=== PATIENT | female | born 1950 | race Caucasian/White ===

== ENCOUNTER 2020-11-24 15:01 | Inpatient (IN) ==
[2020-11-25] MEDS: Gabapentin 300 MG CAPSULE PO SCH ×2 (17:20→21:44)
[2020-11-25] MEDS ORDERED: Sulfamethoxazole/Trimeth DS 1 EACH TABLET PO SCH (21:00)
[2020-11-25] MEDS: Sennosides/Docusate Sodium TABLET PO SCH (21:43)
[2020-11-25] MEDS: *HR* OxyCODONE Immed Rel 5 MG TABLET PO PRN (21:43)
[2020-11-25] MEDS: Cyanocobalamin (B-12) 1,000 MCG TABLET PO SCH (21:44)
[2020-11-26 04:45] LABS: Basophils % 0.8 %; Eosinophils # 0.4 K/mcL (0.0-0.6); Eosinophils % 7.4 %; Hematocrit 36.3 % (35.3-44.9); Immature Granulocytes % 0.2 % (0-4); Lymphocytes # 1.3 K/mcL (0.6-4.6); Lymphocytes % 26.9 %; Mean Corpuscular HGB Conc 32.5 g/dL (31.6-35.5); Mean Corpuscular Hemoglobin 31.6 pg (28.0-33.3); Mean Corpuscular Volume 97.1 fL (83.0-100.0); Monocytes # 0.5 K/mcL (0.0-1.3); Monocytes % 10.5 %; Neutrophils # 2.6 K/mcL (1.6-8.9); Platelet Count 212 K/mcL (140-400); Red Blood Count 3.74 M/mcL (3.82-4.97); Segmented Neutrophils % 54.2 %; White Blood Count 4.8 K/mcL (4.3-11.1)
[2020-11-26 04:52] LABS: Hemoglobin 11.8 g/dL (11.5-15.4)
[2020-11-26 04:59] LABS: Calcium 8.7 mg/dL (8.6-10.3); Potassium 4.1 mEq/L (3.5-5.1)
[2020-11-26] MEDS: *HR* OxyCODONE Immed Rel 5 MG TABLET PO PRN ×3 (05:15→23:43)
[2020-11-26] MEDS: *HR* Enoxaparin 30 MG/0.3 ML SYRINGE SQ SCH (05:16)
[2020-11-26] MEDS: Aspirin Enteric Coated 81 MG Tablet PO SCH (09:33)
[2020-11-26] MEDS: Multivit/Ca/Min/Fe/FA 1 TAB TABLET PO SCH (09:33)
[2020-11-26] MEDS: Lactobacillus 1 EACH CAP.SPRINK PO SCH (09:33)
[2020-11-26] MEDS: Cholecalciferol (D-3) 1,000 UNIT (25MCG) TABLET PO SCH (09:33)
[2020-11-26] MEDS: Sennosides/Docusate Sodium TABLET PO SCH ×2 (09:33→21:46)
[2020-11-26] MEDS: Gabapentin 300 MG CAPSULE PO SCH ×3 (09:34→21:47)
[2020-11-26] MEDS: Folic Acid 1 MG TABLET PO SCH (09:34)
[2020-11-26] MEDS: Cyanocobalamin (B-12) 1,000 MCG TABLET PO SCH ×2 (09:34→21:47)
[2020-11-26] MEDS: BuPROPion XL (24 HR) 150 MG TABLET PO SCH (09:39)
[2020-11-26] MEDS ORDERED: VOLTAREN 1% TP PRN (11:26)
[2020-11-26] MEDS: Ondansetron ODT 4 MG TAB.RAPDIS SL PRN (12:17)
[2020-11-26] MEDS: Sulfamethoxazole/Trimeth DS 1 EACH TABLET PO SCH (21:49)
[2020-11-27] MEDS: *HR* OxyCODONE Immed Rel 5 MG TABLET PO PRN ×4 (05:18→21:16)
[2020-11-27] MEDS: *HR* Enoxaparin 30 MG/0.3 ML SYRINGE SQ SCH (05:19)
[2020-11-27] MEDS: Cholecalciferol (D-3) 1,000 UNIT (25MCG) TABLET PO SCH (08:39)
[2020-11-27] MEDS: Sennosides/Docusate Sodium TABLET PO SCH ×2 (08:40→21:15)
[2020-11-27] MEDS: Aspirin Enteric Coated 81 MG Tablet PO SCH (08:40)
[2020-11-27] MEDS: Cyanocobalamin (B-12) 1,000 MCG TABLET PO SCH ×2 (08:40→21:16)
[2020-11-27] MEDS: Lactobacillus 1 EACH CAP.SPRINK PO SCH (08:40)
[2020-11-27] MEDS: Multivit/Ca/Min/Fe/FA 1 TAB TABLET PO SCH (08:40)
[2020-11-27] MEDS: Gabapentin 300 MG CAPSULE PO SCH ×3 (08:40→21:14)
[2020-11-27] MEDS: BuPROPion XL (24 HR) 150 MG TABLET PO SCH (08:41)
[2020-11-27] MEDS: Triamcinolone Acet 0.1% CRM 15 GM TUBE TP SCH (08:41)
[2020-11-27] MEDS: Folic Acid 1 MG TABLET PO SCH ×2 (08:42→11:35)
[2020-11-27] MEDS: Ondansetron ODT 4 MG TAB.RAPDIS SL PRN (15:55)
[2020-11-27] MEDS ORDERED: ALENDRONATE SODIUM 70 MG PO SCH (16:15)
[2020-11-27] MEDS: Sulfamethoxazole/Trimeth DS 1 EACH TABLET PO SCH (21:19)
[2020-11-28] MEDS: *HR* Enoxaparin 40 MG/0.4 ML SYRINGE SQ SCH (04:50)
[2020-11-28] MEDS: *HR* OxyCODONE Immed Rel 5 MG TABLET PO PRN ×2 (04:51→20:11)
[2020-11-28] MEDS: Aspirin Enteric Coated 81 MG Tablet PO SCH (07:28)
[2020-11-28] MEDS: Multivit/Ca/Min/Fe/FA 1 TAB TABLET PO SCH (07:28)
[2020-11-28] MEDS: BuPROPion XL (24 HR) 150 MG TABLET PO SCH (07:29)
[2020-11-28] MEDS: Acetaminophen 325 MG TABLET PO PRN ×2 (07:29→15:04)
[2020-11-28] MEDS: Sennosides/Docusate Sodium TABLET PO SCH ×2 (07:29→20:09)
[2020-11-28] MEDS: Gabapentin 300 MG CAPSULE PO SCH ×3 (07:29→20:10)
[2020-11-28] MEDS: Cyanocobalamin (B-12) 1,000 MCG TABLET PO SCH ×2 (07:30→20:09)
[2020-11-28] MEDS: Cholecalciferol (D-3) 1,000 UNIT (25MCG) TABLET PO SCH (07:30)
[2020-11-28] MEDS: Triamcinolone Acet 0.1% CRM 15 GM TUBE TP SCH (07:30)
[2020-11-28] MEDS: Lactobacillus 1 EACH CAP.SPRINK PO SCH (07:30)
[2020-11-28] MEDS: Folic Acid 1 MG TABLET PO SCH (07:30)
[2020-11-28] MEDS: Ondansetron ODT 4 MG TAB.RAPDIS SL PRN (15:04)
[2020-11-28] MEDS: Sulfamethoxazole/Trimeth DS 1 EACH TABLET PO SCH (20:10)
[2020-11-29] MEDS: *HR* OxyCODONE Immed Rel 5 MG TABLET PO PRN ×3 (04:13→23:00)
[2020-11-29] MEDS: *HR* Enoxaparin 40 MG/0.4 ML SYRINGE SQ SCH (04:14)
[2020-11-29 04:47] LABS: Hemoglobin 11.3 g/dL (11.5-15.4); Mean Corpuscular HGB Conc 31.4 g/dL (31.6-35.5); Mean Corpuscular Volume 98.9 fL (83.0-100.0); Mean Platelet Volume 9.9 fL (9.4-12.4); Platelet Count 216 K/mcL (140-400); Red Blood Count 3.64 M/mcL (3.82-4.97); Red Cell Distribution Width 13.9 % (11.5-14.5); White Blood Count 4.3 K/mcL (4.3-11.1)
[2020-11-29 05:04] LABS: Albumin 3.5 g/dL (3.5-5.7); Albumin/Globulin Ratio 1.5 (1.1-2.2); Bilirubin,Total 0.4 mg/dL (0.3-1.0); Globulin 2.4 g/dL (2.4-3.5); Magnesium 1.9 mg/dL (1.6-2.6); Potassium 4.3 mEq/L (3.5-5.1); Total Protein 5.9 g/dL (6.4-8.9)
[2020-11-29 05:47] LABS: Thyroid Stimulating Hormone 8.671 mcIU/mL (0.340-5.600)
[2020-11-29] MEDS: Acetaminophen 325 MG TABLET PO PRN ×2 (07:35→16:14)
[2020-11-29] MEDS: BuPROPion XL (24 HR) 150 MG TABLET PO SCH (07:36)
[2020-11-29] MEDS: Sennosides/Docusate Sodium TABLET PO SCH ×2 (07:36→20:42)
[2020-11-29] MEDS: Aspirin Enteric Coated 81 MG Tablet PO SCH (07:36)
[2020-11-29] MEDS: Cholecalciferol (D-3) 1,000 UNIT (25MCG) TABLET PO SCH (07:36)
[2020-11-29] MEDS: Multivit/Ca/Min/Fe/FA 1 TAB TABLET PO SCH (07:37)
[2020-11-29] MEDS: Gabapentin 300 MG CAPSULE PO SCH ×3 (07:37→20:38)
[2020-11-29] MEDS: Lactobacillus 1 EACH CAP.SPRINK PO SCH (07:37)
[2020-11-29] MEDS: Triamcinolone Acet 0.1% CRM 15 GM TUBE TP SCH (07:38)
[2020-11-29] MEDS: Folic Acid 1 MG TABLET PO SCH (07:38)
[2020-11-29] MEDS: Cyanocobalamin (B-12) 1,000 MCG TABLET PO SCH ×2 (07:38→20:38)
[2020-11-29] MEDS: Ondansetron ODT 4 MG TAB.RAPDIS SL PRN (07:39)
[2020-11-29] MEDS ORDERED: polyethylene glycoL 3350 17 GM POWD.PACK PO PRN (10:21)
[2020-11-29] MEDS: Ondansetron ODT 4 MG TAB.RAPDIS SL SCH (16:14)
[2020-11-29] MEDS: Sulfamethoxazole/Trimeth DS 1 EACH TABLET PO SCH (20:39)
[2020-11-30] MEDS: Acetaminophen 325 MG TABLET PO PRN ×3 (03:38→15:02)
[2020-11-30] MEDS: *HR* Enoxaparin 40 MG/0.4 ML SYRINGE SQ SCH (06:40)
[2020-11-30] MEDS: Folic Acid 1 MG TABLET PO SCH (09:04)
[2020-11-30] MEDS: BuPROPion XL (24 HR) 150 MG TABLET PO SCH (09:04)
[2020-11-30] MEDS: Aspirin Enteric Coated 81 MG Tablet PO SCH (09:04)
[2020-11-30] MEDS: Sennosides/Docusate Sodium TABLET PO SCH ×2 (09:04→21:58)
[2020-11-30] MEDS: Cyanocobalamin (B-12) 1,000 MCG TABLET PO SCH ×2 (09:04→21:58)
[2020-11-30] MEDS: Multivit/Ca/Min/Fe/FA 1 TAB TABLET PO SCH (09:05)
[2020-11-30] MEDS: Cholecalciferol (D-3) 1,000 UNIT (25MCG) TABLET PO SCH (09:05)
[2020-11-30] MEDS: Lactobacillus 1 EACH CAP.SPRINK PO SCH (09:05)
[2020-11-30] MEDS: Gabapentin 300 MG CAPSULE PO SCH ×3 (09:05→21:58)
[2020-11-30] MEDS: Triamcinolone Acet 0.1% CRM 15 GM TUBE TP SCH (09:06)
[2020-11-30] MEDS: Ondansetron ODT 4 MG TAB.RAPDIS SL SCH ×2 (12:04→16:34)
[2020-11-30] MEDS: *HR* OxyCODONE Immed Rel 5 MG TABLET PO PRN (15:02)
[2020-11-30] MEDS: Sulfamethoxazole/Trimeth DS 1 EACH TABLET PO SCH (21:57)
[2020-12-01] MEDS: *HR* Enoxaparin 40 MG/0.4 ML SYRINGE SQ SCH (06:16)
[2020-12-01] MEDS: Ondansetron ODT 4 MG TAB.RAPDIS SL PRN (09:17)
[2020-12-01] MEDS: Aspirin Enteric Coated 81 MG Tablet PO SCH (10:44)
[2020-12-01] MEDS: Sennosides/Docusate Sodium TABLET PO SCH ×2 (10:44→21:12)
[2020-12-01] MEDS: Multivit/Ca/Min/Fe/FA 1 TAB TABLET PO SCH (10:44)
[2020-12-01] MEDS: Cholecalciferol (D-3) 1,000 UNIT (25MCG) TABLET PO SCH (10:44)
[2020-12-01] MEDS: Cyanocobalamin (B-12) 1,000 MCG TABLET PO SCH ×2 (10:44→21:12)
[2020-12-01] MEDS: Lactobacillus 1 EACH CAP.SPRINK PO SCH (10:44)
[2020-12-01] MEDS: Gabapentin 300 MG CAPSULE PO SCH ×3 (10:44→21:12)
[2020-12-01] MEDS: BuPROPion XL (24 HR) 150 MG TABLET PO SCH (10:44)
[2020-12-01] MEDS: Folic Acid 1 MG TABLET PO SCH (10:44)
[2020-12-01] MEDS: Triamcinolone Acet 0.1% CRM 15 GM TUBE TP SCH (10:45)
[2020-12-01] MEDS ORDERED: *HR* Promethazine 25 MG/ML VIAL IM ONE (11:34)
[2020-12-01] MEDS: Ondansetron ODT 4 MG TAB.RAPDIS SL SCH ×2 (11:55→17:26)
[2020-12-01] MEDS ORDERED: Metoclopramide 10 MG/2 ML VIAL IVP ONE (14:24)
[2020-12-01] MEDS ORDERED: 0.9 % Sodium Chloride 1,000 ML IVC ONE (14:25)
[2020-12-01] MEDS ORDERED: Ondansetron 4 MG/2 ML VIAL IVP ONE (14:25)
[2020-12-01] MEDS ORDERED: Ondansetron 4 MG/2 ML VIAL IVP PRN (16:54)
[2020-12-01] MEDS ORDERED: *HR* Promethazine 25 MG/ML VIAL IM PRN (16:54)
[2020-12-01 18:01] LABS: Bilirubin,Urine Negative (Negative); Blood,Urine Negative (Negative); Clarity,Urine Clear (Clear); Color,Urine Yellow (Yellow); Glucose,Urine (UA) Normal (Normal); Ketones,Urine 15 mg/dL (Negative); Leukocyte Esterase,Urine Negative (Negative); Nitrite,Urine Negative (Negative); Protein,Urine Negative (Neg-Trace); Specific Gravity,Urine 1.025 (1.010-1.025); Urobilinogen,Urine Normal (Normal)
[2020-12-01] MEDS ORDERED: 0.9 % Sodium Chloride 1,000 ML IVC SCH (20:00)
[2020-12-01] MEDS: Sulfamethoxazole/Trimeth DS 1 EACH TABLET PO SCH (21:11)
[2020-12-02] MEDS: *HR* Enoxaparin 40 MG/0.4 ML SYRINGE SQ SCH (06:16)
[2020-12-02] MEDS: *HR* OxyCODONE Immed Rel 5 MG TABLET PO PRN ×2 (08:37→15:48)
[2020-12-02] MEDS: Sennosides/Docusate Sodium TABLET PO SCH ×2 (08:38→20:47)
[2020-12-02] MEDS: Cholecalciferol (D-3) 1,000 UNIT (25MCG) TABLET PO SCH (08:38)
[2020-12-02] MEDS: Lactobacillus 1 EACH CAP.SPRINK PO SCH (08:38)
[2020-12-02] MEDS: Folic Acid 1 MG TABLET PO SCH (08:38)
[2020-12-02] MEDS: Aspirin Enteric Coated 81 MG Tablet PO SCH (08:38)
[2020-12-02] MEDS: BuPROPion XL (24 HR) 150 MG TABLET PO SCH (08:39)
[2020-12-02] MEDS: Multivit/Ca/Min/Fe/FA 1 TAB TABLET PO SCH (08:39)
[2020-12-02] MEDS: Gabapentin 300 MG CAPSULE PO SCH ×3 (08:40→20:48)
[2020-12-02] MEDS: Triamcinolone Acet 0.1% CRM 15 GM TUBE TP SCH (08:40)
[2020-12-02] MEDS: Cyanocobalamin (B-12) 1,000 MCG TABLET PO SCH ×2 (08:41→20:47)
[2020-12-02] MEDS: Ondansetron ODT 4 MG TAB.RAPDIS SL SCH ×2 (11:55→15:48)
[2020-12-02] MEDS: Sulfamethoxazole/Trimeth DS 1 EACH TABLET PO SCH (20:47)
[2020-12-03 04:35] LABS: Hematocrit 34.1 % (35.3-44.9); Hemoglobin 10.8 g/dL (11.5-15.4); Mean Corpuscular HGB Conc 31.7 g/dL (31.6-35.5); Mean Corpuscular Hemoglobin 31.4 pg (28.0-33.3); Mean Corpuscular Volume 99.1 fL (83.0-100.0); Mean Platelet Volume 9.8 fL (9.4-12.4); Platelet Count 227 K/mcL (140-400); Red Blood Count 3.44 M/mcL (3.82-4.97); White Blood Count 4.8 K/mcL (4.3-11.1)
[2020-12-03 04:49] LABS: Calcium 8.4 mg/dL (8.6-10.3); Magnesium 1.9 mg/dL (1.6-2.6); Potassium 4.3 mEq/L (3.5-5.1)
[2020-12-03] MEDS: *HR* Enoxaparin 40 MG/0.4 ML SYRINGE SQ SCH (06:26)
[2020-12-03] MEDS: *HR* OxyCODONE Immed Rel 5 MG TABLET PO PRN ×3 (08:24→21:05)
[2020-12-03] MEDS: Gabapentin 300 MG CAPSULE PO SCH ×3 (08:25→20:56)
[2020-12-03] MEDS: Sennosides/Docusate Sodium TABLET PO SCH ×2 (08:25→20:56)
[2020-12-03] MEDS: Cyanocobalamin (B-12) 1,000 MCG TABLET PO SCH ×2 (08:25→20:56)
[2020-12-03] MEDS: Lactobacillus 1 EACH CAP.SPRINK PO SCH (08:25)
[2020-12-03] MEDS: BuPROPion XL (24 HR) 150 MG TABLET PO SCH (08:25)
[2020-12-03] MEDS: Folic Acid 1 MG TABLET PO SCH (08:25)
[2020-12-03] MEDS: Multivit/Ca/Min/Fe/FA 1 TAB TABLET PO SCH (08:25)
[2020-12-03] MEDS: Cholecalciferol (D-3) 1,000 UNIT (25MCG) TABLET PO SCH (08:26)
[2020-12-03] MEDS: Aspirin Enteric Coated 81 MG Tablet PO SCH (08:26)
[2020-12-03] MEDS: Triamcinolone Acet 0.1% CRM 15 GM TUBE TP SCH (10:02)
[2020-12-03] MEDS: Ondansetron ODT 4 MG TAB.RAPDIS SL SCH ×2 (12:00→15:43)
[2020-12-03] MEDS: Sulfamethoxazole/Trimeth DS 1 EACH TABLET PO SCH (20:55)
[2020-12-04] MEDS: *HR* OxyCODONE Immed Rel 5 MG TABLET PO PRN ×3 (05:16→18:16)
[2020-12-04] MEDS: *HR* Enoxaparin 40 MG/0.4 ML SYRINGE SQ SCH (05:17)
[2020-12-04] MEDS: Aspirin Enteric Coated 81 MG Tablet PO SCH (09:50)
[2020-12-04] MEDS: BuPROPion XL (24 HR) 150 MG TABLET PO SCH (09:50)
[2020-12-04] MEDS: Multivit/Ca/Min/Fe/FA 1 TAB TABLET PO SCH (09:51)
[2020-12-04] MEDS: Sennosides/Docusate Sodium TABLET PO SCH ×2 (09:51→20:52)
[2020-12-04] MEDS: Lactobacillus 1 EACH CAP.SPRINK PO SCH (09:51)
[2020-12-04] MEDS: Folic Acid 1 MG TABLET PO SCH (09:52)
[2020-12-04] MEDS: Gabapentin 300 MG CAPSULE PO SCH ×3 (09:52→20:53)
[2020-12-04] MEDS: Cyanocobalamin (B-12) 1,000 MCG TABLET PO SCH ×2 (09:52→20:53)
[2020-12-04] MEDS: Cholecalciferol (D-3) 1,000 UNIT (25MCG) TABLET PO SCH (09:52)
[2020-12-04] MEDS: Triamcinolone Acet 0.1% CRM 15 GM TUBE TP SCH (09:53)
[2020-12-04] MEDS: Sulfamethoxazole/Trimeth DS 1 EACH TABLET PO SCH (20:53)
[2020-12-05] MEDS: *HR* Enoxaparin 40 MG/0.4 ML SYRINGE SQ SCH (05:50)
[2020-12-05 07:24] VITALS: BP 102/63
[2020-12-05] MEDS: Lactobacillus 1 EACH CAP.SPRINK PO SCH (07:54)
[2020-12-05] MEDS: Sennosides/Docusate Sodium TABLET PO SCH (07:54)
[2020-12-05] MEDS: BuPROPion XL (24 HR) 150 MG TABLET PO SCH (07:54)
[2020-12-05] MEDS: Gabapentin 300 MG CAPSULE PO SCH ×2 (07:55→15:24)
[2020-12-05] MEDS: Folic Acid 1 MG TABLET PO SCH (07:55)
[2020-12-05] MEDS: Multivit/Ca/Min/Fe/FA 1 TAB TABLET PO SCH (07:55)
[2020-12-05] MEDS: Aspirin Enteric Coated 81 MG Tablet PO SCH (07:55)
[2020-12-05] MEDS: Cyanocobalamin (B-12) 1,000 MCG TABLET PO SCH (07:55)
[2020-12-05] MEDS: Cholecalciferol (D-3) 1,000 UNIT (25MCG) TABLET PO SCH (07:55)
[2020-12-05] MEDS: Triamcinolone Acet 0.1% CRM 15 GM TUBE TP SCH (07:55)
== END 2020-12-05 15:32 | disposition home or self-care (01) | DRG 561 ==
LOC: INPGRE 11-25 15:11
PROVIDERS: ADMIT Family Medicine; ATTEND Family Medicine